=== PATIENT | male | born 1995 | race Caucasian/White ===

== ENCOUNTER → 2021-05-14 | Outpatient (CLI) | payer OTHER | END | disposition home or self-care (01) | LOC: COVID19 16:08 | PROVIDERS: ATTEND Internal Medicine | DX: U07.1 COVID-19 (principal) ==

== ENCOUNTER 2023-06-23 01:25 | Emergency (ER) | payer SELFPAY ==
[~2023-06-23] VITALS: Ht 180.3 cm; Wt 99.8 kg
[2023-06-23 01:43] VITALS: BP 154/88
== END 2023-06-23 04:14 | disposition home or self-care (01) ==
LOC: ED 01:25
DX: M43.26 Fusion of spine, lumbar region (principal); Z91.040 Latex allergy status

== ENCOUNTER 2023-07-14 12:22 | Emergency (ER) | payer SELFPAY ==
[~2023-07-14] VITALS: Wt 99.8 kg
[2023-07-14 12:30] VITALS: BP 145/110
[2023-07-14] MEDS ORDERED: Ketorolac Tromethamine 30 MG/ML VIAL IM ONE (12:45)
[2023-07-14] MEDS ORDERED: methylPREDNISolone sod succ 125 MG VIAL IM ONE (12:45)
== END 2023-07-14 16:41 | disposition home or self-care (01) ==
LOC: ED 12:22
DX: T85.698A Other mechanical complication of other specified internal prosthetic devices, implants and grafts, initial encounter (principal); Y82.9 Unspecified medical devices associated with adverse incidents; Y92.89 Other specified places as the place of occurrence of the external cause